=== PATIENT | female | born 2000 | race Caucasian/White ===

== ENCOUNTER 2019-08-05 14:19 | Emergency (ER) | payer BC ==
[~2019-08-05] VITALS: Ht 170.2 cm; Wt 78.9 kg
[2019-08-05 14:40] VITALS: BP 125/81
--- NOTE | 2019-08-05 14:46 | NUR ---
AWOKE C/O N/V/D X TODAY PLUS LOWER BACK PAIN AND CHILLS DENIES FEVER--POST 2 MONTHS
--- NOTE | 2019-08-05 14:55 | NUR ---
PT AMBULATED TO RESTROOM WITH ---WAS GIVEN URINE CUP FOR SAMPLE
[2019-08-05] MEDS ORDERED: ONDANSETRON 4 MG/2 ML VIAL IVP ONE (15:00)
[2019-08-05] MEDS ORDERED: NACL 0.9% 1,000 ML IV ONE (15:00)
[2019-08-05 15:13] LABS: BASOPHILS % (AUTO) 0.3 % (0.0-2.0); EOSINOPHILS % (AUTO) 0.2 % (0.0-4.0); HEMATOCRIT 40.3 % (36-48); HEMOGLOBIN 13.6 g/dL (12.0-16.0); LYMPHOCYTES # (AUTO) 0.6 K/uL (2.5-16.5); LYMPHOCYTES % (AUTO) 6.1 % (20.5-51.1); MEAN CORPUSCULAR HEMOGLOBIN 29 pg (27-31); MEAN CORPUSCULAR HGB CONC 34 g/dL (33-37); MEAN CORPUSCULAR VOLUME 86.2 fL (80-94); MONOCYTES # (AUTO) 0.3 K/uL (0.8-1.0); MONOCYTES % (AUTO) 2.8 % (1.7-9.3); NEUTROPHILS # (AUTO) 8.9 K/uL (1.8-7.7); NEUTROPHILS % (AUTO) 90.6 % (42.2-75.2); PLATELET COUNT (AUTO) 233 K/uL (140-450); RED BLOOD CELL COUNT(AUTO) 4.67 MIL/uL (4.20-5.40); RED CELL DISTRIBUTION WIDTH 12.3 % (11.6-13.7); WHITE BLOOD COUNT (AUTO) 9.8 K/uL (4.5-11.0)
[2019-08-05 16:03] LABS: ALBUMIN 4.2 g/dL (3.4-5.0); ANION GAP 19.5 (8-16); CARBON DIOXIDE 22.1 mmol/L (21-32); CREATININE 0.7 mg/dL (0.6-1.3); POTASSIUM 3.6 mmol/L (3.5-5.1); TOTAL BILIRUBIN 0.8 mg/dL (0.0-1.0)
[2019-08-05] MEDS ORDERED: KETOROLAC 30 MG/ML VIAL IVP ONE (16:20)
[2019-08-05 16:36] VITALS: BP 127/63
--- NOTE | 2019-08-05 16:37 | NUR ---
Patient discharged with v/s stable. Written and verbal after care instructions given and explained. Patient alert, oriented and verbalized understanding of instructions. Ambulatory with steady gait. All questions addressed prior to discharge. ID band removed. Patient advised to follow up with PMD. Rx of zofran odt given. Patient educated on indication of medication including possible reaction and side effects. Opportunity to ask questions provided and answered.
== END 2019-08-05 16:37 | disposition home or self-care (01) ==
LOC: MED 14:19
DX: R11.2 Nausea with vomiting, unspecified (principal); R19.7 Diarrhea, unspecified; Z90.49 Acquired absence of other specified parts of digestive tract
CPT/HCPCS: 36415; 80053; 81002; 85025; 96361; 96374; 96375; 99283; J1885; J2405; J7030